=== PATIENT | male | born 2000 | race Hispanic/Latino ===

== ENCOUNTER 2021-02-21 18:23 | Emergency (ER) | payer SELFPAY ==
[2021-02-21] MEDS ORDERED: ASPIRIN 325 MG TAB PO ONE (19:43)
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
--- NOTE | 2021-02-21 20:05 | XRay Report ---
CHEST 1 VIEW 02/21/2021 7:31 PM INDICATION / CLINICAL INFORMATION: chest pain. COMPARISON: None available. FINDINGS: SUPPORT DEVICES: None. HEART / MEDIASTINUM: No significant abnormality. LUNGS / PLEURA: No significant pulmonary or pleural abnormality. No pneumothorax. ADDITIONAL FINDINGS: No significant additional findings. IMPRESSION: 1. No acute findings. Signer Name: Jatinder Dasilva MD Signed: 02/21/2021 8:01 PM Workstation Name: [id number]
[2021-02-21 20:28] LABS: Basophils % (Auto) 0.6 % (0.0-1.8); Eosinophils # (Auto) 0.1 K/mm3 (0.0-0.4); Hematocrit 40.3 % (35.5-45.6); Hemoglobin 13.9 gm/dl (11.8-15.2); Lymphocytes # (Auto) 1.6 K/mm3 (1.2-5.4); Lymphocytes % (Auto) 24.2 % (13.4-35.0); Mean Corpuscular HGB Conc 34 % (32-34); Mean Corpuscular Volume 89 fl (84-94); Monocytes # (Auto) 0.5 K/mm3 (0.0-0.8); Monocytes % (Auto) 7.9 % (0.0-7.3); Platelet Count 148 K/mm3 (140-440); Red Blood Count 4.53 M/mm3 (3.65-5.03); Red Cell Distribution Width 13.2 % (13.2-15.2)
[2021-02-21 20:32] LABS: BUN/Creatinine Ratio 20; Blood Urea Nitrogen 16 mg/dL (9-20); Creatine Kinase MB 5.4 ng/mL (0.0-4.0); Hemolysis Index 18
[2021-02-21 21:39] LABS: Amphetamine Screen,Urine Negative; Benzodiazepines Screen,Urine Negative; Cannabinoid Screen,Urine Negative; Cocaine Screen,Urine Negative; Methadone Screen,Urine Negative; Opiate Screen,Urine Negative
[2021-02-22 00:17] VITALS: BP 117/66
--- NOTE | 2021-02-27 10:43 | Electrocardiograph Report ---
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
== END 2021-02-22 00:17 | disposition home or self-care (01) ==
LOC: ED 18:23
DX: R07.89 Other chest pain (principal)
CPT/HCPCS: 36415; 71045; 80048; 80307; 82550; 82553; 84484; 85025; 93005